=== PATIENT | male | born 1970 | race Two or more races ===

== ENCOUNTER 2019-06-03 09:59 | Emergency (ER) | payer OTHER ==
[~2019-06-03] VITALS: Ht 185.4 cm; Wt 77.6 kg
[2019-06-03 10:01] VITALS: BP 130/82
[2019-06-03] MEDS ORDERED: KETOROLAC 30 MG/1 ML ONE (10:21)
[2019-06-03] MEDS: KETOROLAC 30 MG/1 ML IM ONE (10:38)
== END 2019-06-03 12:52 ==
LOC: ED 12:25
DX: S70.02XA Contusion of left hip, initial encounter (principal); X58.XXXA Exposure to other specified factors, initial encounter; Y93.89 Activity, other specified; Y92.413 State road as the place of occurrence of the external cause; Y99.8 Other external cause status
CPT/HCPCS: 72110; 73502; 73700; 96372; 99284; J1885

== ENCOUNTER 2019-08-18 17:07 | Emergency (ER) | payer OTHER, MEDICAID ==
[~2019-08-18] VITALS: Ht 188 cm; Wt 76.0 kg
[2019-08-18 17:24] VITALS: BP 163/60
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
[2019-08-18] MEDS ORDERED: METHOCARBAMOL 750 MG TABLET PO ONE (18:00)
[2019-08-18] MEDS ORDERED: KETOROLAC 30 MG/1 ML IM ONE (18:00)
[2019-08-18] MEDS ORDERED: KETOROLAC 30 MG/1 ML ONE (18:05)
[2019-08-18] MEDS ORDERED: METHOCARBAMOL 750 MG TABLET ONE (18:05)
--- NOTE | 2019-08-18 18:08 | NUR ---
PT MEDICATED PER ORDERS.
--- NOTE | 2019-08-18 19:16 | NUR ---
Patient/Caregiver given discharge instructions and they have confirmed that they understand the instructions. Patient ambulatory with steady gait.
== END 2019-08-18 19:23 | disposition home or self-care (01) ==
LOC: ED 18:40
DX: S39.012A Strain of muscle, fascia and tendon of lower back, initial encounter (principal); M51.36 Other intervertebral disc degeneration, lumbar region; M48.061 Spinal stenosis, lumbar region without neurogenic claudication; V89.2XXA Person injured in unspecified motor-vehicle accident, traffic, initial encounter; Y93.89 Activity, other specified; Y92.89 Other specified places as the place of occurrence of the external cause; Y99.8 Other external cause status
CPT/HCPCS: 72131; 96372; 99284; J1885

== ENCOUNTER 2019-12-15 19:05 | Emergency (ER) | payer MEDICAID ==
[~2019-12-15] VITALS: Ht 188 cm; Wt 75.0 kg
[~2019-12-15 19:05] MED LIST: ACET500T64 PO; INSU100I13 SQ-INSULIN; LEVO750T6 PO; METF500T PO; OXYC5TAB3 PO
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
[2019-12-15] MEDS ORDERED: SODIUM CHLORIDE 0.9% 1,000ML IVBOLUS ONE (20:00)
[2019-12-15] MEDS ORDERED: NEOSPORIN OINT. PKT 1 PACKET ONE (20:04)
[2019-12-15 20:13] LABS: BASOPHILS # (AUTO) 0.03 x10^3/uL (0-0.1); BASOPHILS % (AUTO) 1 % (0-1); EOSINOPHILS # (AUTO) 0.05 x10^3/uL (0-0.4); EOSINOPHILS % (AUTO) 1 % (1-7); LYMPHOCYTES # (AUTO) 2.11 x10^3/uL (1-3.4); LYMPHOCYTES % (AUTO) 40 % (22-44); MD NO; MEAN CORPUSCULAR HEMOGLOBIN 31.2 pg (27.5-34.5); MEAN CORPUSCULAR HGB CONC 33.8 g/dL (33.2-36.2); MEAN CORPUSCULAR VOLUME 92.1 fL (81-97); MEAN PLATELET VOLUME 10.6 fL (7.4-10.4); MONOCYTES # (AUTO) 0.37 x10^3/uL (0.2-0.8); MONOCYTES % (AUTO) 7 % (2-9); NEUTROPHILS # (AUTO) 2.77 x10^3/uL (1.8-6.8); NEUTROPHILS % (AUTO) 52 % (42-75); PLATELET COUNT 223 x10^3/uL (130-400); RED BLOOD COUNT 5.29 x10^6/uL (4.38-5.82); RED CELL DISTRIBUTION WIDTH 13.4 % (9.4-14.8)
[2019-12-15 20:25] LABS: ALBUMIN 4.1 g/dL (3.4-5.0); ANION GAP 15 mmol/L (5-15); CALCIUM 9.2 mg/dL (8.5-10.1); CHLORIDE 101 mmol/L (98-107)
[2019-12-15 20:30] LABS: ALANINE AMINOTRANSFERASE 32 U/L (12-78); ALKALINE PHOSPHATASE 152 U/L (45-117); BILIRUBIN,TOTAL 0.9 mg/dL (0.2-1.0); CREATININE 1.36 mg/dL (0.7-1.3); TOTAL PROTEIN 8.4 g/dL (6.4-8.2)
[2019-12-15 20:33] LABS: MICROSCOPIC NOT IND
--- NOTE | 2019-12-15 20:35 | NUR ---
PT RESTING IN GURNEY, PT WILL BE CALM AND THEN SUDDENLY BECAME EXTREMELY AGGITATED. PT HEARD ANOTHER PT ACROSS START VOMITING AND PT BEGAN THRASHING AND SCREAMING "SHUT THE FUCK UPPPP, SHUT THE FUCK UP, SHUT THE FUCK UP!!". PT CMS INTACT, SKIN COLOR WNL WARM AND DRY. VSS. POST FLUIDS HEART RATE DECREASED, LOW SINUS TACH 100-110S. WCTM. CALL LIGHT IN HAND
[2019-12-15 20:36] LABS: ACETONE, SERUM Negative (Negative)
[2019-12-15 20:40] LABS: AMPHETAMINE SCREEN, URINE Positive (Negative); BARBITURATE SCREEN, URINE Negative (Negative); BENZODIAZEPINE SCREEN, URINE Negative (Negative); CANNABINOID SCREEN, URINE Negative (Negative); COCAINE SCREEN, URINE Negative (Negative); METHADONE SCREEN, URINE Negative (Negative); OPIATE SCREEN, URINE Negative (Negative)
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
--- NOTE | 2019-12-15 21:23 | NUR ---
PT GIVEN DIET SPRITE AND WATER FOR COMFORT, RESP WNL, VSS, NAD, WCTM. PT TO MTF.
--- NOTE | 2019-12-15 21:45 | NUR ---
OFFICER AT BS TALKING TO PT, PT IS CALMER THAN PREVIOUS, NAD, VSS. [email or web address].
[2019-12-15 21:55] LABS: ALBUMIN 3.6 g/dL (3.4-5.0); ANION GAP 10 mmol/L (5-15); CHLORIDE 110 mmol/L (98-107); CREATININE 1.05 mg/dL (0.7-1.3)
[2019-12-15 22:46] VITALS: BP 169/96
--- NOTE | 2019-12-15 22:48 | NUR ---
Patient given discharge instructions and they have confirmed that they understand the instructions. Patient ambulatory with steady gait. denies additional questions at this time, NAD, VSS. all belongings with pt at time of DC.
== END 2019-12-15 22:48 ==
LOC: ED 22:42
DX: F10.220 Alcohol dependence with intoxication, uncomplicated (principal); E11.65 Type 2 diabetes mellitus with hyperglycemia; F15.20 Other stimulant dependence, uncomplicated; R00.0 Tachycardia, unspecified; R41.0 Disorientation, unspecified; Z72.9 Problem related to lifestyle, unspecified; F41.9 Anxiety disorder, unspecified; E11.9 Type 2 diabetes mellitus without complications; F17.210 Nicotine dependence, cigarettes, uncomplicated; Y90.9 Presence of alcohol in blood, level not specified
CPT/HCPCS: 36415; 80048; 80053; 80307; 81003; 82010; 82040; 82962; 83690; 85025; 93005; 96360; 99284; J7030